=== PATIENT | female | born 1975 | race Caucasian/White ===

== ENCOUNTER 2017-01-10 07:14 | Day surgery (SDC) | payer BC ==
--- NOTE | ~2017-01-10 | OP ---
Record Of Operation [facility] [address] [place]. [address] NAME: SHANELLE XAVIER : 71 [place] [facility] [place] [id number] AGE: 41 ADM/REG DATE : 01/10/17 MR#: [id number] REPORT SERV DATE: 01/10/17 DICTATED BY: Sri JACOME DATE: 01/10/17 REPORT STATUS : Draft TRANSCRIBED BY: RODDY DATE: 01/10/17 DATE OF PROCEDURE: 01/10/2017 PREOPERATIVE DIAGNOSIS: Chronic right serous otitis media. POSTOPERATIVE DIAGNOSIS: Chronic right serous otitis media. NAME OF OPERATION: Right tympanostomy tube with Gucci T-tube insertion. FINDINGS: Serous middle ear fluid; then retracted tympanic membrane anteriorly; mild tympanosclerosis. INDICATIONS: This 41-year-old, has had a lifelong problem with her right ear and has required numerous ventilation tubes. These were done as a child and then starting in 2001, she had started needing tubes as an adult. Her ventilation tubes placed in 2013 has extruded, and she has developed ear discomfort once again, and the volar fluid refractory to medical therapy. The pros and cons, alternatives, benefits, risks, limitations, complications of ventilation tube insertion were discussed at length, including, but not limited to, reaction to ear drum to tube, early extrusion, chronic tube retention (which would not be a bad thing), granulation tissue, tympanic membrane perforation (which might not be a bad thing either), anesthesia reaction, blocked tube, chronic otorrhea, imponderables were discussed at length. No guarantees were expressed. She understands and wishes to proceed. Proper consent was obtained. DESCRIPTION OF PROCEDURE: She was taken into the operating room and given general anesthesia with the aid of an LMA tube. Sterile drapes were applied. With sterile technique, utilizing the 10 power operating microscope, the right tympanic membrane was visualized. There was middle ear fluid obvious, daphney in color. The tympanic membrane was retracted anteriorly. A radial incision was made in the anterior and superior portion of the tympanic membrane. The middle ear fluid was aspirated. A Gucci T-tube was inserted without difficulty. Ofloxacin ophthalmic drops were placed in the ear. She was then awakened and taken to the recovery room in good condition having tolerated procedure well. Home going instructions included using ofloxacin drops in right ear three drops three times a day for two days. Recheck in the office in one month. ZACKARY/RODDY Sri Jacome M.D. / [id number] Record Of Operation [address] [address] NAME: SHANELLE XAVIER : 71 [place]US [place] [facility] [place] [id number] AGE: 41 ADM/REG DATE : 01/10/17 MR#: [id number] REPORT SERV DATE: 01/10/17 DICTATED BY: Sri JACOME DATE: 01/10/17 REPORT STATUS : Draft TRANSCRIBED BY: RODDY DATE: 01/10/17 CC: Tim Engle D.O.
[~2017-01-10 07:14] MED LIST: ZYRTEC ALLGY10 MG PO
== END 2017-01-10 18:16 | disposition home or self-care (01) ==
LOC: SDC 07:14
PROVIDERS: Specialist
PROC: 099500Z Drainage of Right Middle Ear with Drainage Device, Open Approach (ICD-10-PCS; principal; 2017-01-10 08:45)
DX: H65.21 Chronic serous otitis media, right ear (principal); Z79.899 Other long term (current) drug therapy; Z90.49 Acquired absence of other specified parts of digestive tract; Z98.890 Other specified postprocedural states
CPT/HCPCS: 84703; 85014; 85018; J2250; J2405; J3010